=== PATIENT | male | born 1960 | race Caucasian/White ===

== ENCOUNTER → 2021-10-17 09:40 | Outpatient (CLI) | payer OTHER, SELFPAY ==
--- NOTE | ~2021-10-17 | XR_ITS ---
XR chest 2V DATE: 10/17/2021 10:01 INDICATION: Cough, wheezing for one week. Past smoker. TECHNIQUE: 2 views COMPARISON: 02/26/2018 PA and lateral chest FINDINGS: Normal heart size. No hilar or mediastinal enlargement. Moderate bilateral hyperinflation. No pulmonary infiltrate or consolidation, pleural effusion or pulmonary vascular congestion or pneumo thorax. IMPRESSION: Moderate hyperinflation; no active cardiopulmonary disease Reviewed, dictated and finalized at location A.
== END ==
PROVIDERS: PCP Emergency Medicine; Visit Provider Emergency Medicine
DX: R06.2 Wheezing (principal); R05.9 Cough, unspecified; R91.8 Other nonspecific abnormal finding of lung field
CPT/HCPCS: 71046

== ENCOUNTER → 2021-10-24 15:40 | Outpatient (CLI) | payer OTHER, SELFPAY ==
--- NOTE | ~2021-10-24 | XR_ITS ---
XR shoulder LT min 2V DATE: 10/24/2021 16:19 INDICATION: Left shoulder pain for 8 months. Unable to raise arm. TECHNIQUE: 4 views COMPARISON: None FINDINGS: There is minimal degenerative change at the left acromioclavicular joint. Left glenohumeral joint space appears relatively well preserved. Slight spurring is suggested. No fracture, dislocation, periosteal reaction or bone destruction is detected. IMPRESSION: Mild degenerative change at the left acromioclavicular and glenohumeral joints Reviewed, dictated and finalized at location A. IMPRESSION: Mild degenerative change at the left acromioclavicular and glenohum eral joints
== END ==
PROVIDERS: PCP Emergency Medicine; Visit Provider Emergency Medicine
DX: M25.512 Pain in left shoulder (principal)
CPT/HCPCS: 73030

== ENCOUNTER → 2022-01-29 09:15 | Outpatient (CLI) | payer OTHER, SELFPAY ==
--- NOTE | ~2022-01-29 | XR_ITS ---
EXAMINATION: XR facial bones min 3V DATE: 01/29/2022 09:49 INDICATION: Left lower jaw swelling. TECHNIQUE: 4 views of the facial bones were obtained. COMPARISON: None. FINDINGS: Bone alignment is normal. There is a blowout fracture deformity of floor of left orbit. IMPRESSION: 1. Blowout fracture deformity of floor of left orbit. Reviewed, dictated and finalized at location B.
== END ==
PROVIDERS: PCP Emergency Medicine; Visit Provider Emergency Medicine
DX: R68.84 Jaw pain (principal)
CPT/HCPCS: 70150

== ENCOUNTER → 2024-07-22 12:16 | Outpatient (CLI) | payer OTHER, SELFPAY ==
--- NOTE | ~2024-07-22 | XR_ITS ---
Right foot Technique: AP, oblique, and lateral views were obtained. Clinical History: Great toe pain Findings: No acute fracture or dislocation is seen. Osseous alignment is anatomic. Joint spaces are p reserved without erosive or degenerative change. Soft tissues are unremarkable. Impression: Unremarkable right foot radiographs. Reviewed, dictated and finalized at [facility]. Impression: Unremarkable right foot radiographs.
== END ==
LOC: EXPCRAD 12:19
PROVIDERS: PCP Emergency Medicine; Visit Provider Emergency Medicine
DX: M79.674 Pain in right toe(s) (principal)
CPT/HCPCS: 73630